=== PATIENT | female | born 1950 | race Caucasian/White ===

== ENCOUNTER 2017-05-23 01:39 | Inpatient (IN) | payer MEDICARE ==
[~2017-05-23] VITALS: Ht 163 cm; Wt 60.0 kg
[2017-05-23] VITALS (7 sets, daily range): BP systolic 106–137; BP diastolic 45–80
--- NOTE | ~2017-05-23 | EKG ---
[place], [place] ELECTROCARDIOGRAM REPORT NAME: CARI CAIN UNIT #: [id number] ROOM: 422 DOCTOR: LIN GARCIA,ADEN BIRTHDATE: [birth year] DOS: 05/23/2017 TIME: 0218 hours. IMPRESSION: 1. Sinus rhythm, with sinus arrhythmia. 2. Nondiagnostic RSR in V1. ADEN CEBALLOS MD CM:EKGRPT:ELECTROCARDIOGRAM REPORT [id number] ADEN CEBALLOS MD
[2017-05-23 02:30] LABS: BASO # 0.1 10*3/uL (0.0-0.1); BASO % 0.4 % (0.0-1.0); EOS # 0.1 10*3/uL (0.0-0.4); EOS % 0.4 % (1.0-4.0); HEMATOCRIT 40.9 % (37.0-47.0); HEMOGLOBIN 13.8 g/dl (12.0-16.0); LYMPH # 1.5 10*3/uL (1.3-4.4); LYMPH % 10.6 % (27.0-41.0); MEAN CELL VOLUME 94.7 fl (81.0-99.0); MEAN CORPUSCULAR HGB 31.9 pg (27.0-31.0); MEAN CORPUSCULAR HGB CONC 33.7 g/dl (33.0-37.0); MEAN PLATELET VOLUME 11.3 fl (9.6-12.3); MONO # 0.7 10*3/uL (0.1-1.0); MONO % 5.1 % (3.0-9.0); NEUT # 11.9 10*3/uL (2.3-7.9); NEUT % 83.1 % (47.0-73.0); PLATELET COUNT AUTOMATED 213 10*3/uL (130-400); RED BLOOD COUNT 4.32 10*6/uL (4.10-5.10); WHITE BLOOD COUNT 14.2 10*3/uL (4.8-10.8)
[2017-05-23 02:48] LABS: ALBUMIN 3.8 gm/dl (3.1-4.5); ALKALINE PHOSPHATASE 83 U/L (45-117); BUN 14 mg/dl (7-24); CHLORIDE 103 mmol/L (98-107); CREATININE 0.77 mg/dL (0.55-1.02); POTASSIUM 3.7 mmol/L (3.5-5.1); SGOT/AST 17 IU/L (3-35); SGPT/ALT 23 U/L (12-78); SODIUM 139 mmol/L (136-145); TOTAL PROTEIN 6.6 gm/dL (6.4-8.2)
[2017-05-23 02:52] LABS: TROPONIN I < 0.015 ng/ml (<0.045)
[2017-05-23 04:17] LABS: BILIRUBIN NEGATIVE (NEGATIVE); BLOOD 1+ (NEGATIVE); CLARITY CLOUDY (CLEAR); COLOR YELLOW (YELLOW); GLUCOSE NEGATIVE (NEGATIVE); KETONE NEGATIVE (NEGATIVE); LEUKO ESTERASE NEGATIVE (NEGATIVE); NITRITE NEGATIVE (NEGATIVE); PH 6.5 (5.0-9.0)
[2017-05-23 04:24] LABS: BACTERIA 3+; EPITHELIAL CELLS 16-20
[2017-05-23 04:25] LABS: CALCIUM OXALATE CRYSTALS 1+; YEAST 1+
--- NOTE | 2017-05-23 05:55 | NUR ---
CALLED HOSPITALIST ON NEW ADMISSION. SAID HE WOULD PUT IN ORDERS.
--- NOTE | 2017-05-23 06:05 | NUR ---
MENTIONED TO THAT MED REC IS NOT COMKPLETE DUE TO CLOSED PHARMACY AND PT UNAWARE OF WHAT ALL SHE TAKES. WILL CONINUE TO MONITOR PT.
--- NOTE | 2017-05-23 08:16 | NUR ---
PT C/O RT SIDED DISCOMFORT RELATED TO FALL. RATES PAIN 12/19. MEDICATED PO ORDERED PER PT REQUEST WITH NORCO 1 TAB. SEE EMAR. IN TO SEE PT & AWARE OF PT COMPLAINTS. SEE SHIFT ASSESSMENT.
--- NOTE | 2017-05-23 09:30 | NUR ---
PT DOZING INTERMITTENTLY, STATES MEDICATION EFFECTIVE IN RELIEVING DISCOMFORT. WILL CONTINUE TO MONITOR.
[2017-05-23] MEDS ORDERED: LEXAPRO10 MG PO (09:52)
[2017-05-23] MEDS ORDERED: TRAZODONE50 MG PO (09:52)
--- NOTE | 2017-05-23 18:26 | NUR ---
MEDICATED PO ORDERED PER PT REQUEST WITH NORCO 1 TAB FOR C/O RT SIDED SHOULDER PAIN. PT RATES PAIN .. SEE EMAR.
--- NOTE | 2017-05-23 20:00 | NUR ---
PT WAS GIVEN NORCO AT 1830. PT'S PAIHN WAS AGAIN ASSESSED AND HAS GONE DOWN. SIGNIFICANTLY. MED EFFECTIVE.
--- NOTE | 2017-05-23 21:59 | NUR ---
PT'S PAIN ASSESSED AGAIN. PT HAS NO PAIN AT THIS TIME. WILL CONINUE TO MONITOR.
[2017-05-24] VITALS: BP 99/46
[2017-05-24 04:00] VITALS: BP 124/74
[2017-05-24 06:57] LABS: BASO % 0.4 % (0.0-1.0); EOS # 0.1 10*3/uL (0.0-0.4); EOS % 1.5 % (1.0-4.0); HEMATOCRIT 35.2 % (37.0-47.0); HEMOGLOBIN 11.8 g/dl (12.0-16.0); LYMPH # 2.2 10*3/uL (1.3-4.4); MEAN CORPUSCULAR HGB 32.8 pg (27.0-31.0); MEAN CORPUSCULAR HGB CONC 33.5 g/dl (33.0-37.0); MEAN PLATELET VOLUME 12.1 fl (9.6-12.3); MONO # 0.5 10*3/uL (0.1-1.0); MONO % 7.2 % (3.0-9.0); NEUT % 58.6 % (47.0-73.0); PLATELET COUNT AUTOMATED 169 10*3/uL (130-400); RED CELL DISTRI WIDTH 13.5 % (0-14.5); WHITE BLOOD COUNT 6.9 10*3/uL (4.8-10.8)
[2017-05-24 06:59] LABS: MEAN CELL VOLUME 97.8 fl (81.0-99.0)
[2017-05-24 07:27] LABS: CHLORIDE 111 mmol/L (98-107); CHOLESTEROL 180 mg/dL (<200); POTASSIUM 3.7 mmol/L (3.5-5.1); SODIUM 143 mmol/L (136-145)
[2017-05-24 07:34] LABS: ALBUMIN 2.9 gm/dl (3.1-4.5); ALKALINE PHOSPHATASE 61 U/L (45-117); BUN 16 mg/dl (7-24); CREATININE 0.58 mg/dL (0.55-1.02); FREE T4 1.09 ng/dl (0.76-1.46); HDL CHOLESTEROL 57 mg/dl (40-60); LDL CHOLESTEROL 105 mg/dL (9-159); PHOSPHOROUS 2.5 mg/dL (2.5-4.9); SGOT/AST 17 IU/L (3-35); SGPT/ALT 19 U/L (12-78); TOTAL PROTEIN 5.2 gm/dL (6.4-8.2); TRIGLYCERIDES 90 mg/dl (<150); VLDL CHOLESTEROL 18 mg/dL (6-40)
[2017-05-24 07:56] LABS: VITAMIN D, 25-HYDROXY 26.7 ng/mL (30-100)
[2017-05-24 08:00] VITALS: BP 112/62
--- NOTE | 2017-05-24 08:00 | NUR ---
RESTING QUIETLY IN BED, NO C/O , NO DISTRESS NOTED. DENIES DIZZINESS. STATES OCCASIONAL MOIST COUGH. SEE SHIFT ASSESSMENT.
--- NOTE | 2017-05-24 09:00 | NUR ---
Director Personal in to talk to patient. Patient states lives at home with . There are few steps in the home. Physician: Pharmacy: Home health services: none Patient's level of ADLs: INDEPENDENT Patient has working utilities: all working DME: none Follow-up physician's appointment after d/c: will be made by hospitalist nurse director upon discharge Does patient want to access PORTAL?: no Discharge plan discussed with patient, patient states she lives at home , is independent in adls and ambulation, works and drives, has a daughter is she needs help with anything, patient states she will be going back home and denies any home needs. SERVANDO MUÑOZ
[2017-05-24 12:00] VITALS: BP 124/62
[2017-05-24 16:00] VITALS: BP 114/66; BP 144/66
[2017-05-24 20:00] VITALS: BP 145/68
--- NOTE | 2017-05-24 20:00 | NUR ---
PT ASSESSED, ALERT ORIENTED AND COOPERATIVE. IV NORMAL SALINE RUNNING PER ORDER. IV SITE FLUSHING WITH EASE. DRESSING DRY AND IN TACT. LUNGS DIMINISHED THROUGHOUT, BOWEL SOUNDS NORMOACTIVE, HEART RATE 69 PER CM. NO COMPLAINTS VOICED AT THIS TIME, CALL LIGHT IN REACH.
--- NOTE | 2017-05-24 20:40 | NUR ---
PT C/O PAIN UPON INSPIRATION. REQUESTS PRN NORCO. NORCO GIVEN AT THIS TIME, WILL MONITOR EFFECTIVENESS.
--- NOTE | 2017-05-24 21:40 | NUR ---
TINO EFFECTIVE PER PT.
[2017-05-25] VITALS: BP 138/66
--- NOTE | 2017-05-25 01:54 | NUR ---
24 HR chart check completed.
--- NOTE | 2017-05-25 05:46 | NUR ---
PT UP TO BATHROOM AT THIS TIME, ALERT ORIENTED AND COOPERATIVE. AMBULATING WITH NO PROBLEMS NOTED. IV SITE PATENT, DRESSING DRY AND IN TACT. IV FLUIDS RUNNING PER ORDER. RESPIRATIONS EASY AND UNLABORED. NO COMPLAINTS VOICED AT THIS TIME.
[2017-05-25 08:00] VITALS: BP 140/68
--- NOTE | 2017-05-25 08:34 | NUR ---
NORCO GIVEN FOR C/O RT SIDE PAIN. RATES 8/10 ON PAIN SCALE. WILL MONITOR.
--- NOTE | 2017-05-25 09:00 | NUR ---
case management visits with patient, patient denies any home needs
--- NOTE | 2017-05-25 09:00 | NUR ---
TINO EFFECTIVE PER PT.
--- NOTE | 2017-05-25 09:50 | NUR ---
PATIENT WAS ALERT AND COOPERATIVE WITH CARE, IS NOW RESTING COMFORTABLY IN BED. WENDY BLAKELY JOHN
[2017-05-25 12:00] VITALS: BP 116/74
[2017-05-25] MEDS ORDERED: VIBRAMYCIN100 MG PO (12:57)
--- NOTE | 2017-05-25 13:13 | NUR ---
DOCTOR IN TO VISIT WENDY BLAKELY SPNR[facility]
[2017-05-25 16:00] VITALS: BP 124/59
--- NOTE | 2017-05-25 16:14 | NUR ---
[facility] Discharge instructions reviewed with patient/family. Patient receptive and verbalizes understanding. Follow-up care arranged. Written instructions given to patient/family. JANAK QUEEN
== END 2017-05-25 16:22 | disposition home or self-care (01) | DRG 871 ==
LOC: ED 01:39 → EDHOLD 04:24 → 4E 04:24
PROVIDERS: Emergency Medicine Emergency Medical Services; Hospitalist; ADMIT Internal Medicine
DX: A41.9 Sepsis, unspecified organism (principal); J18.1 Lobar pneumonia, unspecified organism; I50.32 Chronic diastolic (congestive) heart failure; R55 Syncope and collapse; R79.82 Elevated C-reactive protein (CRP); R31.9 Hematuria, unspecified; R82.71 Bacteriuria; F32.9 Major depressive disorder, single episode, unspecified; W18.39XA Other fall on same level, initial encounter; F17.210 Nicotine dependence, cigarettes, uncomplicated; F41.9 Anxiety disorder, unspecified; M15.9 Polyosteoarthritis, unspecified; Z90.89 Acquired absence of other organs; Z82.49 Family history of ischemic heart disease and other diseases of the circulatory system; Z71.6 Tobacco abuse counseling; Z81.8 Family history of other mental and behavioral disorders; Z79.899 Other long term (current) drug therapy; Y93.89 Activity, other specified; Y92.89 Other specified places as the place of occurrence of the external cause; Y99.8 Other external cause status